=== PATIENT | female | born 1960 | race Caucasian/White ===

== ENCOUNTER 2017-09-05 13:11 | Outpatient (CLI) | payer MEDICARE, MEDICAID ==
--- NOTE | 2017-09-05 14:22 | RAD ---
CHEST TWO VIEWS: HISTORY: Dyspnea. Lung nodule. COMPARISON: 07/22/2013 FINDINGS: The cardiac silhouette and pulmonary vasculature are unremarkable. The mediastinum is midline. No c onfluent air space consolidation, pneumothorax, or pleural fluid. Noncalcified nodule, left upper lo be, is stable. IMPRESSION: Left upper lobe nodule and other findings are stable. POS: [facility]
== END 2017-09-05 13:12 | disposition home or self-care (01) ==
LOC: RAD 13:11
PROVIDERS: ATTEND Internal Medicine Critical Care Medicine
DX: R91.1 Solitary pulmonary nodule (principal); R06.00 Dyspnea, unspecified
CPT/HCPCS: 71046

== ENCOUNTER 2021-08-12 10:56 | Outpatient (CLI) | payer MEDICARE, MEDICAID | END 2021-08-12 10:57 | disposition home or self-care (01) | LOC: BICMAMMO 10:56 | PROVIDERS: ATTEND Internal Medicine | DX: Z12.31 Encounter for screening mammogram for malignant neoplasm of breast (principal) | CPT/HCPCS: 77063; 77067 ==

== ENCOUNTER 2022-03-04 23:22 | Emergency (ER) | payer OTHER, MEDICARE, MEDICAID ==
[~2022-03-04 23:22] MED LIST: Iopamidol-370 76% 500 ML 1 ML ONE
[2022-03-04 23:50] LABS: #Basophils 0.1 thou/uL (0.0-0.2); #Lymphocytes 2.2 thou/uL (1.20-3.40); #Neutrophils 3.8 thou/uL (1.40-6.50); %Basophils 1.5 % (0.0-1.0); %Eosinophils 0.3 % (0.0-10.0); %Lymphocytes 30.7 % (21.0-51.0); %Monocytes 14.4 % (0.0-10.0); Hemoglobin 14.2 g/dL (12.0-16.0); Mean Corpuscular HGB CONC 33.6 g/dL (32.0-36.0); Mean Corpuscular Hemoglobin 33.3 pg (27.0-31.0); Mean Platelet Volume 7.3 fL (7.4-10.4); Platelet Count 276 10x3/uL (130-400); Red Blood Cell (RBC) Count 4.27 mill/uL (4.20-5.40); White Blood Cell (WBC) Count 7.2 10x3/uL (4.8-10.8)
[2022-03-05 00:11] LABS: ALT (SGPT) 14 U/L (8-55); AST (SGOT) 23 U/L (5-34); Albumin 4.6 g/dL (3.4-4.8); Alkaline Phosphatase 107 U/L (40-110); Anion Gap 14 mmol/L (10-20); BUN (Urea Nitrogen) 11 mg/dL (9.8-20.1); Bilirubin, Total 0.2 mg/dL (0.2-1.2); Calc. Creatinine Clearance 0 mL/min (70-130); Calcium 9.5 mg/dL (7.8-10.44); Carbon Dioxide 27 mmol/L (23-31); Chloride 103 mmol/L (98-107); Estimated GFR 87; Globulin 2.9 g/dL (2.4-3.5); Glucose 109 mg/dL (80-115); Potassium 3.7 mmol/L (3.5-5.1); Protein, Total 7.5 g/dL (5.8-8.1); Sodium 140 mmol/L (136-145)
== END 2022-03-05 01:09 | disposition home or self-care (01) ==
LOC: ERS 23:22
DX: S00.03XA Contusion of scalp, initial encounter (principal); J44.9 Chronic obstructive pulmonary disease, unspecified; F17.210 Nicotine dependence, cigarettes, uncomplicated; V59.9XXA Occupant (driver) (passenger) of pick-up truck or van injured in unspecified traffic accident, initial encounter
CPT/HCPCS: 70450; 71260; 72125; 74177; 80053; 85025; G0390; Q9967

== ENCOUNTER 2022-04-14 10:51 | Outpatient (CLI) | payer MEDICARE, MEDICAID | END 2022-04-14 10:52 | disposition home or self-care (01) | LOC: NM 10:51 | PROVIDERS: ATTEND Internal Medicine | DX: Z12.9 Encounter for screening for malignant neoplasm, site unspecified (principal); R51.9 Headache, unspecified; G93.9 Disorder of brain, unspecified | CPT/HCPCS: 78306; A9503 ==

== ENCOUNTER 2022-08-02 10:11 | Outpatient (CLI) | payer MEDICARE, MEDICAID | END 2022-08-02 10:12 | disposition home or self-care (01) | LOC: SCSMRI 10:11 | PROVIDERS: ATTEND Psychiatry & Neurology Neurology | DX: G50.0 Trigeminal neuralgia (principal); M26.602 Left temporomandibular joint disorder, unspecified; M27.2 Inflammatory conditions of jaws | CPT/HCPCS: 70553 ==

== ENCOUNTER 2023-05-30 11:34 | Outpatient (CLI) | payer MEDICARE, MEDICAID | END 2023-05-30 11:35 | disposition home or self-care (01) | LOC: SCSMRI 11:34 | PROVIDERS: ATTEND Psychiatry & Neurology Neurology | DX: S09.90XA Unspecified injury of head, initial encounter (principal) | CPT/HCPCS: 70544 ==